=== PATIENT | female | born 1985 | race Caucasian/White ===

== ENCOUNTER 2024-08-02 14:47 | Emergency (ER) | payer SELFPAY ==
[2024-08-02 15:08] VITALS: BP 138/107; PULSE 133; RESP 18; O2SAT 95; BMI 21.2
--- NOTE | 2024-08-02 15:33 | CTR_ITS ---
PROCEDURE INFORMATION: Exam: CT Abdomen And Pelvis With Contrast Exam date and time: 08/02/2024 4:30 PM Age: 39 years old Clinical indication: Nausea and vomiting; Additional info: Abd pain TECHNIQUE: Imaging protocol: Computed tomography of the abdomen and pelvis with contrast. Radiation optimization: All CT scans at this facility use at least one of these dose optimization techniques: automated exposure control; mA and/or kV adjustment per patient size (includes targeted exams where dose is matched to clinical indication); or iterative reconstruction. Contrast material: OMNIPAQUE 350; Contrast volume: 100 ml; Contrast route: INTRAVENOUS (IV); COMPARISON: CR (CHEST, ) 08/02/2024 4:14 PM RADIATION DOSE METRICS: Total DLP (mGy-cm): 420.93 FINDINGS: Liver: Normal. No mass. Gallbladder and biliary ducts: There is sludge and/or gravel along the dependent aspect of the gallbladder. Gallbladder is distended measuring 4.7 x 8.6 cm in width/length. Gallbladder wall does not appear thickened and no pericholecystic fluid is seen. Pancreas: Normal. No ductal dilation. Spleen: Normal. No splenomegaly. Adrenal glands: Normal. No mass. Kidneys and ureters: Normal. No hydronephrosis. Stomach and bowel: There is diverticulosis of the colon without evidence of diverticulitis. Appendix: No evidence of appendicitis. Intraperitoneal space: Unremarkable. No free air. No significant fluid collection. Vasculature: Unremarkable. No abdominal aortic aneurysm. Lymph nodes: Unremarkable. No enlarged lymph nodes. Urinary bladder: Unremarkable as visualized. Reproductive: Unremarkable as visualized. Bones/joints: Unremarkable. No acute fracture. Soft tissues: Unremarkable. CT/CT abdomen pelvis w con* [id number] IMPRESSION: Gallbladder is distended and contains sludge and/or gravel. No evidence for gallbladder wall thickening or pericholecystic fluid.
--- NOTE | 2024-08-02 15:33 | XRR_ITS ---
PROCEDURE INFORMATION: Exam: XR Chest Exam date and time: 08/02/2024 4:14 PM Age: 39 years old Clinical indication: Other: Nausea; Additional info: Dyspnea/cough TECHNIQUE: Imaging protocol: Radiologic exam of the chest. Views: 1 view. COMPARISON: No relevant prior studies available. FINDINGS: Lungs: Unremarkable. No consolidation. Pleural spaces: Unremarkable. No pleural effusion. No pneumothorax. Heart/Mediastinum: Unremarkable. No cardiomegaly. Bones/joints: Unremarkable. XR/XR chest 1V portable [id number] IMPRESSION: No acute findings.
--- NOTE | 2024-08-02 15:34 | ED_ITS ---
HPI - GI Bleed 2 General: Chief complaint: GI Bleed Stated complaint: excess bleeding, dont feel good Time Seen by Provider: 08/02/24 15:26 History of Present Illness: 39-year-old female presents to the emerg ency room with complaints of GI bleeding. She is brought in by a friend. He had gone to help her, he is a former emergency room nurse. She is tachycardic. She admits to drinking up to 20 shots per day for 10 to 15 years or longer. She is reporting vaginal, as well as vomiting blood. Her friend showed me a picture from her kitchen floor there were large puddles of bright red blood that she had vomited. She also had black tarry stools. She reports that she has lung cancer and and seen Dr. Hearn in the past however reviewing our EMR there is no previous visits. Either in our current system which began in August 11, 2019 or prior to that and the older system. She is not actively vomiting any blood at the moment. Associated symptoms: Reports abdominal pain, nausea and vomiting; Denies chills, fever(s) or rash Related Data Previous Rx's Medication Instructions Recorded pantoprazole 40 mg tablet,delayed 40 mg PO BID #40 tabs 08/02/24 release (Protonix) sucralfate 1 gram tablet (Carafate) 1 g PO Q6H PRN Stomach 08/02/24 upset/indigestion/reflux 4 weeks #112 tabs Allergies Allergy/AdvReac Type Severity Reaction Status Date / Time amoxicillin Allergy Unknown Verified 08/02/24 15:13 Penicillins Allergy Unknown Verified 08/02/24 15:13 most pain medications Allergy Unknown Uncoded 08/02/24 15:13 Review of Systems 2 Const: Denies: fever(s) or chills Card: Denies: chest pain Resp: Denies: dyspnea GI: Reports: abdominal pain, nausea, vomiting, hematemesis, coffee ground emesis and melena : Denies: dysuria, urinary frequency or urinary urgency Musc: Denies: neck pain or back pain Skin/Breast: Denies: rash Physical Exam 2 Const: GENERAL APPEARANCE: cooperative ORIENTATION/CONSCIOUSNESS: Yes awake, Yes oriented to person, Yes oriented to place and Yes oriented to time HENMT: COMMON NORMALS: normocephalic, atraumatic and hearing grossly normal bilaterally HEAD & SCALP: normocephalic and atraumatic Resp: COMMON NORMALS: normal respiratory effort, No retractions, No use of accessory muscles and clear to auscultation bilaterally AUSCULTATION: clear to auscultation bilaterally Cardio: COMMON NORMALS: regular rate, regular rhythm and No murmurs present (Cardio) RATE: regular rate RHYTHM: regular rhythm GI: COMMON NORMALS: Soft to palpation and No hepatosplenomegaly present A USCULTATION: Yes normoactive bowel sounds PALPATION: Yes Soft to palpation, No Tenderness to palpation present (GI), No Guarding due to palpation present (GI) and Yes No hepatosplenomegaly present Extremity: COMMON NORMALS: normal to inspection, capillary refill normal, no clubbing, cyanosis or edema, no calf tenderness and no pedal edema Neuro: SENSORIUM/ORIENTATION: Yes oriented to person, Yes oriented to place and Yes oriented to time Skin: COMMON NORMALS: no rashes or lesions noted GENERAL SKIN EXAM: no rashes or lesions noted Course 2 Vital Signs: Vital signs: Vital Signs Pulse Rate 116 H 08/02/24 16:42 Respiratory Rate 18 08/02/24 15:08 Blood Pressure 133/106 08/02/24 16:42 Pulse Oximetry 96 08/02/24 16:42 MDM - GI Bleed Medical Decision Making Patient has signs of active GI bleed. A friend that accompanied her showed me a picture that he had taken from where he found her on her floor at her home. There is a large amount of bright red blood vomitus on the floor with some clotting. Patient was prophylactically given octreotide she has had no further bleeding or vomitus since. Unfortunately were unable to convince her to allow us to hospitalize her. Extensive discussion with the patient about the risks of going home with GI bleed if she were to suddenly start bleeding again she likely may not have time to return she is already tachycardic. Some of this may be from block blood loss although her hemoglobin is normal it may be it has not had time to equalize another equally good possibility as she is already beginning to have withdrawal issues. Patient admits to very heavy drinking for an extended period of time. Despite efforts by myself and her friend who is a former ER nurse she was not willing to stay to be treated. And ultimately she left AGAINST MEDICAL ADVICE. Did give her prescriptions for pantoprazole and's sucralfate. Patient was encouraged to return at any time if she wished to pursue treatment. Medical Records I reviewed the patient's medical records. Lab Data I reviewed the patient's lab results. 08/02/24 15:54 08/02/24 15:54 Radiology Impressions Abdomen/Pelvis CT 08/02/24 15:33 IMPRESSION: Gallbladder is distended and contains sludge and/or gravel. No evidence for gallbladder wall thickening or pericholecystic fluid. Chest X-Ray 08/02/24 15:33 IMPRESSION: No acute findings. Laboratory Results WBC 3.49 10^3/uL (3.29-11.43) 08/02/24 15:54 RBC 4.51 10^6/uL (3.85-5.65) 08/02/24 15:54 Hgb 16.00 g/dL (11.27-16.99) 08/02/24 15:54 Hct 46.5 % (36-47) 08/02/24 15:54 MCV 103.1 fl (85-98) H 08/02/24 15:54 MCH 35.5 pg (27-33) H 08/02/24 15:54 MCHC 34.4 g/dL (30-55) 08/02/24 15:54 RDW 12.0 % (12.1-15.1) L 08/02/24 15:54 Plt Count 128 10^3/cmm (157-399) L 08/02/24 15:54 MPV 9.0 fL (7.4-10.4) 08/02/24 15:54 Neut % (Auto) 51.9 % 08/02/24 15:54 Lymph % (Auto) 30.4 % 08/02/24 15:54 [place] % (Auto) 16.0 % 08/02/24 15:54 Eos % (Auto) 0.3 % 08/02/24 15:54 Baso % (Auto) 1.1 % 08/02/24 15:54 Neut # (Auto) 1.81 10^3/uL (1.8-7.7) 08/02/24 15:54 Lymph # (Auto) 1.1 10^3/uL (0.8-4.8) 08/02/24 15:54 [place] # (Auto) 0.6 10^3/uL (0.2-0.9) 08/02/24 15:54 Eos # (Auto) 0.0 10^3/uL (0.0-0.8) 08/02/24 15:54 Baso # (Auto) 0.0 10^3/uL (0.0-0.1) 08/02/24 15:54 Nucleated RBC % (auto) 0 % 08/02/24 15:54 Nucleated RBCs # 0.0 /100WBC 08/02/24 15:54 PT 13.60 SECONDS (12.1-14.9) 08/02/24 15:54 INR 1.01 (0.8-1.2) 08/02/24 15:54 APTT 27.5 SECONDS (23.9-36.7) 08/02/24 15:54 Sodium 142 mmol/L (136-145) 08/02/24 15:54 Potassium 3.1 mmol/L (3.5-5.1) L 08/02/24 15:54 Chloride 103 mmol/L (98-107) 08/02/24 15:54 Carbon Dioxide 25 mmol/L (22-29) 08/02/24 15:54 Anion Gap 17.1 (5-19) 08/02/24 15:54 BUN 2 mg/dL (6-20) L 08/02/24 15:54 Creatinine 0.4 mg/dL (0.5-0.9) L 08/02/24 15:54 GFR Calculation 177.7 mL/min (90-130) H 08/02/24 15:54 Glucose 126 mg/dL (65-115) H 08/02/24 15:54 Calculated Osmolality 292 mOsm/kg (285-295) 08/02/24 15:54 Calcium 9.1 mg/dL (8.5-10.5) 08/02/24 15:54 Magnesium 1.7 mg/dL (1.7-2.3) 08/02/24 15:54 Total Bilirubin 1.1 mg/dL (0.15-1.2) 08/02/24 15:54 AST 301 U/L (0-32) H 08/02/24 15:54 ALT 99 U/L (0-33) H 08/02/24 15:54 Alkaline Phosphatase 248 U/L (35-105) H 08/02/24 15:54 Ammonia 51 umol/L (11-51) 08/02/24 15:54 Total Protein 7.9 g/dL (6.6-8.7) 08/02/24 15:54 Albumin 3.6 g/dL (3.5-5.2) 08/02/24 15:54 Globulin 4.3 g/dL (1.3-4.6) 08/02/24 15:54 Lipase 30 U/L (13-60) 08/02/24 15:54 Blood Type O Positive 08/02/24 16:07 Rho(D) Type Rh positive 08/02/24 16:07 Antibody Screen Negative 08/02/24 16:07 All radiology interpretation(s) finalized by discharge Discharge Plan Discharge Patient Disposition: Left Against Medical Advice Clinical Impression: Upper gastrointestinal hemorrhage, Alcohol abuse Condition: Stable Prescriptions: New pantoprazole [Protonix] 40 mg tablet,delayed release (DR/EC) 40 mg PO BID Qty: 40 0RF Rx Instructions: 1 p.o. twice daily x 10 days then 1 p.o. daily sucralfate [Carafate] 1 gram tablet 1 g PO Q6H PRN (Reason: Stomach upset/indigestion/reflux) 28 Days Qty: 112 0RF Discharge Orders: Discharge ED (Routine); Ordered 08/02/24 Ordered By: Hernandez German Discharge Diet: Clear Liquid Patient Instructions: Opioid Safety, Pain Management Activity Restrictions/Additional Instructions: Thank you for choosing [facility] for your healthcare needs today. It is very important that you follow up as instructed or that you return to the Emergency Department should you have concerns or if your condition changes or worsens in any way. You were seen in the emergency room with an upper GI bleed. Suspect you may have I ulcer in your stomach or even possibly bleeding from your esophagus. These are both related likely to your drinking. Strongly encouraged that you stop drinking. It was recommended that you be admitted to the hospital for further evaluation including a scope of your esophagus and stomach as well as monitoring of your bleeding from your stomach. You declined to do this. At any point if you wish you are welcome to return or reevaluate you and make further treatment recommendations. If you have any signs of bleeding, (vomiting bright red blood or coffee-ground like material, or dark tarry stools or maroonish colored stools) return to the emergency room immediately. strongly encourage you to abstain from alcohol. Coding Level of Care Code ED Religious Assistant for Russell Hilton
[2024-08-02] MEDS: octreotide 100 mcg/mL SDV 50 MCG IVP (15:37)
[2024-08-02] MEDS: pantoprazole 40 mg SDV 80 MG IVP (15:44)
[2024-08-02 16:05] LABS: Basophils % 1.1 %; Eosinophils % 0.3 %; Hematocrit 46.5 % (36-47); Lymphocytes # 1.1 10^3/uL (0.8-4.8); Lymphocytes % 30.4 %; Mean Corpuscular HGB Conc 34.4 g/dL (30-55); Mean Corpuscular Hemoglobin 35.5 pg (27-33); Mean Corpuscular Volume 103.1 fl (85-98); Monocytes # 0.6 10^3/uL (0.2-0.9); Neutrophils # 1.81 10^3/uL (1.8-7.7); Neutrophils % 51.9 %; Nucleated Red Blood Cells % 0 %; Platelet Count 128 10^3/cmm (157-399); Red Blood Count 4.51 10^6/uL (3.85-5.65); White Blood Count 3.49 10^3/uL (3.29-11.43)
[2024-08-02 16:25] LABS: INR 1.01 (0.8-1.2)
[2024-08-02 16:26] LABS: Partial Thromboplastin Time 27.5 SECONDS (23.9-36.7)
[2024-08-02 16:28] LABS: Ammonia 51 umol/L (11-51)
[2024-08-02 16:31] LABS: Alanine Aminotransferase 99 U/L (0-33); Albumin Level 3.6 g/dL (3.5-5.2); Alkaline Phosphatase 248 U/L (35-105); Anion Gap 17.1 (5-19); Aspartate Amino Transferase 301 U/L (0-32); Blood Urea Nitrogen 2 mg/dL (6-20); Calcium 9.1 mg/dL (8.5-10.5); Carbon Dioxide 25 mmol/L (22-29); Chloride 103 mmol/L (98-107); Creatinine Clr Calc Pharmacy 190.0063; Globulin 4.3 g/dL (1.3-4.6); Glomerular Filtration Rate 177.7 mL/min (90-130); Glucose 126 mg/dL (65-115); Lipase 30 U/L (13-60); Magnesium 1.7 mg/dL (1.7-2.3); Osmolality Calculated 292 mOsm/kg (285-295); Potassium 3.1 mmol/L (3.5-5.1); Sodium 142 mmol/L (136-145); Total Bilirubin 1.1 mg/dL (0.15-1.2); Total Protein 7.9 g/dL (6.6-8.7)
[2024-08-02] MEDS: iohexol 350 mg/mL 500 mL Btl (per mL) IV (16:32)
[2024-08-02 16:42] VITALS: BP 133/106; PULSE 116; O2SAT 96
== END 2024-08-02 17:34 | disposition left against medical advice (07) ==
PROVIDERS: Physician Assistant; Emergency Provider Family Medicine
DX: K92.2 Gastrointestinal hemorrhage, unspecified (principal); F10.10 Alcohol abuse, uncomplicated
CPT/HCPCS: 36415; 71045; 74177; 80053; 82140; 83690; 83735; 85025; 85610; 85730; 86850; 86900; 96374; 96375; 99285; J2354; J2470